=== PATIENT | male | born 1995 | race African-American/Black ===

== ENCOUNTER 2022-04-01 14:06 | Emergency (ER) | payer MEDICAID ==
[~2022-04-01] VITALS: Ht 172.7 cm; Wt 61.7 kg
[2022-04-01 14:15] VITALS: BP 104/72
--- NOTE | 2022-04-01 14:17 | NUR ---
PT TO ER BED 12.
[2022-04-01] MEDS ORDERED: ALBUTEROL SULFATE/IPRATROPIU 3 ML SOL IH ONE (14:20)
[2022-04-01] MEDS ORDERED: predniSONE 20 MG TAB PO ONE (14:20)
[2022-04-01] MEDS ORDERED: ALBUTEROL 0.083% 2.5 MG/3 ML NEBU INH ONE (14:20)
[2022-04-01] MEDS ORDERED: PRED20TA5 PO (14:34)
[2022-04-01] MEDS ORDERED: ALBU0.0912 INH (14:34)
--- NOTE | 2022-04-01 15:20 | NUR ---
Patient discharged with v/s stable. Written and verbal after care instructions given and explained with teachback. Patient alert, oriented and verbalized understanding of instructions. Ambulatory with steady gait. All questions addressed prior to discharge. ID band removed. Patient advised to follow up with PMD. Rx of albuterol sulfate/prednisone given. Patient educated on indication of medication including possible reaction and side effects. Opportunity to ask questions provided and answered.
--- NOTE | 2022-04-01 15:20 | NUR ---
Pt resp even and unlabored. Denies SOB, no apparent resp distress at this time 100% on RA. Pt lung sounds clear bilat.
[2022-04-01 15:23] VITALS: BP 129/94
== END 2022-04-01 15:20 | disposition home or self-care (01) ==
LOC: MED 14:06
DX: J45.909 Unspecified asthma, uncomplicated (principal); F12.90 Cannabis use, unspecified, uncomplicated
CPT/HCPCS: 94640; 99283; J7512; J7613

== ENCOUNTER 2022-11-04 04:26 | Emergency (ER) | payer MEDICAID ==
[~2022-11-04] VITALS: Ht 172.7 cm; Wt 64.9 kg
[~2022-11-04 04:26] MED LIST: ALBU0.0912 INH; PRED20TA5 PO
[2022-11-04 04:37] VITALS: BP 136/85
--- NOTE | 2022-11-04 04:44 | NUR ---
Patient taken to bed 6.
[2022-11-04] MEDS ORDERED: ALBUTEROL SULFATE/IPRATROPIU 3 ML SOL IH ONE ×3 (04:50→05:10)
--- NOTE | 2022-11-04 04:55 | NUR ---
RT at bedside for breathing treatment.
--- NOTE | 2022-11-04 05:04 | NUR ---
Dr. Gutierrez examining patient.
[2022-11-04] MEDS ORDERED: predniSONE 20 MG TAB PO ONE (05:10)
--- NOTE | 2022-11-04 05:20 | NUR ---
RT AT BEDSIDE
--- NOTE | 2022-11-04 05:25 | NUR ---
27YR OLD MALE BIB SELF C/O ASTHMA. PT HX OF ASTHMA. AUDIBLE WHEEZES SPEAKING FULL SENTENCES. ON BEDSIDE MONITOR HOB ELEVATED. RESP EVEN AND UNLBORED. PT DENIES CP OR PAIN. RT AT BEDSIDE NKDA ASTHMA
--- NOTE | 2022-11-04 05:49 | NUR ---
X-Ray at bedside.
[2022-11-04] MEDS ORDERED: ALBU0.0912 IH (05:56)
[2022-11-04] MEDS ORDERED: PRED50TA2 PO (05:56)
[2022-11-04 06:04] VITALS: BP 122/73
--- NOTE | 2022-11-04 06:04 | NUR ---
Patient discharged with v/s stable. Written and verbal after care instructions given and explained. Patient alert, oriented and verbalized understanding of instructions. Ambulatory with steady gait. All questions addressed prior to discharge. ID band removed. Patient advised to follow up with PMD. Rx of PROVENTIL HFA MDI given. Patient educated on indication of medication including possible reaction and side effects. Opportunity to ask questions provided and answered.
== END 2022-11-04 06:04 | disposition home or self-care (01) ==
LOC: MED 04:26
DX: J45.901 Unspecified asthma with (acute) exacerbation (principal); F12.90 Cannabis use, unspecified, uncomplicated; Z79.899 Other long term (current) drug therapy
CPT/HCPCS: 71045; 94640; 99285; J7512; Q0092

== ENCOUNTER 2023-04-29 06:27 | Emergency (ER) | payer MEDICAID ==
[~2023-04-29] VITALS: Ht 170.2 cm; Wt 63.5 kg
[~2023-04-29 06:27] MED LIST changes: +ALBU0.0912 IH; +PRED50TA2 PO
[2023-04-29 06:30] VITALS: BP 133/93
--- NOTE | 2023-04-29 06:30 | NUR ---
TO BED AMBULATORY
--- NOTE | 2023-04-29 06:39 | NUR ---
Dr. Carrizales examining patient.
[2023-04-29] MEDS ORDERED: ALBUTEROL 0.083% 2.5 MG/3 ML NEBU INH ONE (06:40)
[2023-04-29] MEDS ORDERED: IPRATROPIUM 0.02% 0.5 MG/2.5 ML NEBU INH ONE (06:40)
[2023-04-29] MEDS ORDERED: predniSONE 20 MG TAB PO ONE (06:40)
--- NOTE | 2023-04-29 07:25 | NUR ---
REPORT RECEIVED FROM KAMI LYNCH. ASSUMED CARE AT THIS TIME
[2023-04-29] MEDS ORDERED: ALBU0.0912 IH (07:38)
[2023-04-29] MEDS ORDERED: PRED20TA5 PO (07:38)
--- NOTE | 2023-04-29 07:59 | NUR ---
Patient discharged with v/s stable. Written and verbal after care instructions FOR ASTHMA given and explained. Patient alert, oriented and verbalized understanding of instructions. Ambulatory with steady gait. All questions addressed prior to discharge. ID band removed. Patient advised to follow up with PMD. Rx of PREDNISONE AND ALBUTEROL given. Opportunity to ask questions provided and answered.
--- NOTE | 2023-04-29 08:13 | NUR ---
The patient's care was reviewed and supervised by Chelsea 04 ED, RN.
== END 2023-04-29 07:59 | disposition home or self-care (01) ==
LOC: MED 06:27
DX: J45.901 Unspecified asthma with (acute) exacerbation (principal); F12.90 Cannabis use, unspecified, uncomplicated; Z79.899 Other long term (current) drug therapy
CPT/HCPCS: 94640; 99283; J7512; J7613; J7644

== ENCOUNTER 2023-09-22 07:46 | Emergency (ER) | payer MEDICAID ==
[~2023-09-22] VITALS: Ht 170.2 cm; Wt 63.2 kg
[2023-09-22 07:55] VITALS: BP 132/84; PULSE 88; RESP 20; TEMP 98.1; O2SAT 95
[2023-09-22] MEDS ORDERED: predniSONE 20 MG TAB PO ONE (08:00)
[2023-09-22] MEDS ORDERED: ALBUTEROL 0.083% 2.5 MG/3 ML NEBU INH ONE (08:00)
[2023-09-22] MEDS ORDERED: ALBUTEROL SULFATE/IPRATROPIU 3 ML SOL IH ONE (08:00)
[2023-09-22 08:22] VITALS: PULSE 90; RESP 18; O2SAT 96
[2023-09-22] MEDS ORDERED: ALBU0.0912 INH (08:25)
[2023-09-22] MEDS ORDERED: PRED20TA5 PO (08:25)
[2023-09-22 08:31] VITALS: PULSE 90; RESP 18; O2SAT 96
== END 2023-09-22 09:14 | disposition home or self-care (01) ==
LOC: MED 07:46
DX: J45.901 Unspecified asthma with (acute) exacerbation (principal); F12.90 Cannabis use, unspecified, uncomplicated; Z79.899 Other long term (current) drug therapy
CPT/HCPCS: 94640; 99283; J7512; J7613